=== PATIENT | female | born 1960 | race Hispanic/Latino ===

== ENCOUNTER 2020-03-09 12:04 | Emergency (ER) | payer OTHER ==
[~2020-03-09] VITALS: Ht 152.4 cm; Wt 64.0 kg
--- OUTSIDE RECORDS SUMMARY | 2020-03-09 12:07 | XMS REPORT | Continuity of Care Document ---
Author Author Cristobal Clemson [employer] Elidia, KENNETH HIPOLITO Organization [facility] [facility] Address Unknown Phone Unavailable Care Team Providers Care [place] Name Role Phone [facility] Unavailable Un available Problems No Data Provided for This Section Medications No Data Provided for This Section Allergies, Adverse Reactions, Alerts No Known Medication Allergies Immunizations No Data Provided for This Section Results No Data Provided for This Section Pathology Reports No Data Provided for This Section Diagnostic Reports No Data Provided for This Section Consultation Notes No Data Provided for This Section Discharge Summaries No Data Provided for This Section History and Physicals No Data Provided for This Section Vital Signs No Data Provided for This Section Encounters Location Location Details Encounter Type Encounter Number Reason For Visit Attending Provider ADM Date DC Date Status Source Outpatient [id number] Keara Gamino 05/08/2019 Active [facility] [id number] [facility] 05/26/2019 Active [facility] Outpatient [id number] [facility] 05/26/2019 Active [facility] Procedures No Data Provided for This Section Assessment and Plan No Data Provided for This Section Plan of Care No Data Provided for This Section Social History No Data Provided for This Section Family History No Data Provided for This Section Advance Directives No Data Provided for This Section Functional Status No Data Provided for This Section
--- OUTSIDE RECORDS SUMMARY | 2020-03-09 12:08 | XMS REPORT ---
Author Author [facility] t Organization [facility] Address [address] [place] [address] Phone Unavailable Care Team Providers Care Rn Wound Care Name Role Phone ROSY PRICE M.D. 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 Social History Smoking Status Start Date Stop Date Source Never smoker [facility] Medications Ordered Medication Name Filled Medication Name Start Date Stop Da te Current Medication? Ordering Clinician Indication Dosage Frequency Signature (SIG) Comments Components Source metFORMIN HCl TABS metFORMIN HCl TABS Yes [facility] Jardiance TABS Jardiance TABS Yes [facility] glipiZIDE TABS glipiZIDE TABS Yes [facility] Losartan Potassium TABS Losartan Potassium TABS Yes [facility] Raloxifene HCl TABS Raloxifene HCl TABS Yes [facility] Pantoprazole Sodium TBEC Pantoprazole Sodium TBEC Yes [facility] Pravastatin Sodium TABS Pravastatin Sodium TABS Yes [facility] Trulicity SOPN Trulicity SOPN Yes [facility] Folic Acid CAPS Folic Acid CAPS Yes [facility] Magic Mouthwash Magic Mouthwash Yes [facility] Vital Signs Vital Name Observation Time Observation Value Comments Source BP Systolic 2018-12-29 14:37:00 162 mm[Hg] [facility] BP Diastolic 2018-12-29 14:37:00 82 mm[Hg] [facility] Height 2018-12-29 14:37:00 62 [in_us] [facility] Weight 2018-12-29 14:37:00 147.5 [lb_av] [facility] Body Mass Index Calculated 2018-12-29 14:37:00 26.98 kg/m2 [facility] Heart Rate 2018-12-29 14:37:00 80 /min [facility] Procedures Procedure Date / Time Performed Performing Clinician Kermit e History of Hysterectomy [facility] Encounters Start Date/Time End Date/Time Encounter Type Admission Type Attendi [facility] Facility Care Department Encounter ID Source 2019-05-14 15:52:47 Outpatient [id number] [facility] 2019-07-23 09:37:00 2019-07-23 09:37:00 Outpatient [id number] [facility] 2019-07-09 13:51:00 2019-07-09 13:51:00 Outpatient [id number] [facility] 2019-06-07 10:50:00 2019-06-07 10:50:00 Outpatient [id number] [facility] 2019-05-26 14:45:00 2019-05-26 14:45:00 Outpatient [facility] LT [facility] [id number] [facility] 2019-05-26 14:45:00 2019-05-26 14:45:00 Outpatient [facility] LT [facility] [id number] [facility] 2019-05-08 11:40:00 2019-05-08 11:40:00 Outpatient [facility] LT [facility] [id number] [facility] 2019-04-22 14:48:00 2019-04-22 14:48:00 Outpatient [facility] [id number] [facility] [place] 2018-12-29 14:00:00 2018-12-29 14:00:00 Appointment; ROSY PRICE M.D. ROSY PRICE M.D. [facility] Otorhinolaryngology [facility] [id number] [facility] Results Test Description Test Time Test Comments Results Result Comments Source SCR MAMM BILATERAL TARIQ CAD DIGITAL 2019-12-14 09:24:36 - SCR MAMM BILATERAL TARIQ CAD DIGITALBILATERAL DIGITAL SCREENING MAMMOGRAM 3D/2D WITH CAD: 12/11/2019CLINICAL: Asymptomatic. Digital breast tomosynthesis was performed in addition to routine CC and MLO views. Current mammographic images were evaluated by either a VuSlidely M-Vu or a Hologic ImageChecker CAD (computer aided detection system). Comparison is made to exams dated 05/29/2018 mammogram, 05/24 mammogram, and 05/04/2016 mammogram - [facility]. The tissue of both breasts is heterogeneously dense. This may lower the sensitivity of mammography. There are benign vascular calcifications in the left breast. No suspicious mass, architectural distortion, malignant type calcification, or lymph node abnormality detected. Breast architecture is stable compared to prior exams.IMPRESSION: BENIGNThere is no mammographic evidence of malignancy. Resume annual screening mammography in one year. Henrik Díaz M.D. ss/penrad:12/14/2019 09:24:36 Charger Tester: Eva PEACE, [facility]: BIRADS 1-2 Normal Mammogram BI-RADS: 2 Benign
--- OUTSIDE RECORDS SUMMARY | 2020-03-09 12:08 | XMS REPORT | Summary of Care ---
Author Author KENNETH Conway M.A. Organization Unknown Address Unknown Phone Unavailable Care Team Providers Care Residential Team Leader Name Role Phone ROSY PRICE M.D. Unavailable Unavailable SAMANTHA ROBB, ADALI Unavailable Unavailable Unavailable Unavailable Functional Status Name Dates Details Functional status health issues are not documented Status: Name Dates Details Cognitive status health issues are not d ocumented Status: Problems Name Dates Details Burning tongue syndrome (529.6, K14.6) Status: Active Medications Name Dates Details metFORMIN HCl TABS Active Jardiance TABS * Refills: 0 Active glipiZIDE TABS * Refills: 0 Active Losartan Potassium TABS * Refills: 0 Active Raloxifene HCl TABS * Refills: 0 Active Pantoprazole Sodium TBEC * Refills: 0 Active Pravastatin Sodium TABS * Refills: 0 Active Trulicity SOPN * Refills: 0 Active Folic Acid CAPS * Refills: 0 Active Magic Mouthwash * Refills: 0 Active Allergies and Adverse Reactions Name Dates Details No Known Drug Allergies (Allergy) Status : Active Past Medical History Name Dates Details History of Depressive disorder (311, F32 .9) Status: Resolved History of diabetes mellitus (V12.29, Z8 6.39) Status: Resolved History of gastritis (V12.79, Z87.19) Status: Resolved Procedures Procedure Dates Details History of Hysterectomy Completed Immunization Name Dates Details Immunizations not documented Family History Name Dates Details No significant family history (V49.89, Z 78.9) Comments: Family History Status: Active Social History Name Dates Details - Status: Name Dates Details Never smoker Vital Signs Date Test Result Details [id number] BP Systolic 162 mm[Hg] Status: BP Diastolic 82 mm[Hg] Status: Height 62 in Status: Weight 147.5 lb Status: Body Mass Index Calculated 26.98 kg/m2 Status: Body Surface Area Calculated 1.68 m2 Status: Heart Rate 80 /min Status: Results Date Description Value Details Results not documented Plan of Care Name Dates Details Planned Observations Planned Goals not documented Interventions Provided Plan* 1. Burning resolved. Can stop the mouth rinse. FU as needed. Instructions Name Dates Details Instructions not documented Encounters Appointment; ROSY PRICE M.D. Encounter Diagnosis: Problem not documented On: 29-Dec-2018 14:00
[2020-03-09] MEDS ORDERED: SODIUM CHLORIDE 0.9% 1000ML 1,000 ML IV STA ×3 (12:26→13:34)
[2020-03-09] MEDS ORDERED: ACETAMINOPHEN 325 MG TAB PO ONE (12:30)
[2020-03-09 12:57] LABS: BASOPHILS % 0.2 % (0.0-1.0); EOSINOPHILS % 0.2 % (0.0-6.0); HEMATOCRIT 45.6 % (34.2-44.1); LYMPHOCYTES # (AUTO) 2.5 (1.0-3.2); LYMPHOCYTES % 29.3 % (18.0-39.1); MEAN CORPUSCULAR HEMOGLOBIN 26.4 pg (28-32); MEAN CORPUSCULAR HGB CONC 32.9 g/dL (31-35); MEAN CORPUSCULAR VOLUME 80.1 fL (81-99); MONOCYTES # (AUTO) 0.4 (0.2-0.8); MONOCYTES % 4.9 % (4.4-11.3); NEUTROPHILS # (AUTO) 5.6 (2.1-6.9); NEUTROPHILS % 65.1 % (38.7-80.0); PLATELET COUNT 308 x10e3/uL (140-360); RED BLOOD COUNT 5.69 x10e6/uL (3.6-5.1); RED CELL DISTRIBUTION WIDTH 13.1 % (11.7-14.4)
[2020-03-09 13:07] LABS: CLARITY,URINE CLEAR (CLEAR); COLOR,URINE YELLOW (YELLOW)
[2020-03-09 13:08] LABS: BILIRUBIN,URINE NEGATIVE (NEGATIVE); KETONES,URINE 1+ (NEGATIVE); LEUKOCYTE ESTERASE ,URINE NEGATIVE (NEGATIVE); NITRITE,URINE NEGATIVE (NEGATIVE); PROTEIN,URINE DIPSTICK NEGATIVE (NEGATIVE); URINE UROBILINOGEN 0.2 mg/dL (0.2 - 1)
[2020-03-09 13:19] LABS: BACTERIA,URINE FEW /HPF; EPITHELIAL CELLS,URINE MANY /LPF; RBC,URINE 0-5 /HPF (0-5); WBC,URINE (MAN) 0-5 /HPF (0-5)
[2020-03-09 13:27] LABS: INR 0.85; PROTHROMBIN TIME 12.1 seconds (11.9-14.5)
[2020-03-09 13:28] LABS: PARTIAL THROMBOPLASTIN TIME 30.3 seconds (23.8-35.5)
[2020-03-09 13:36] LABS: ALANINE AMINOTRANSFERASE 25 IU/L (0-55); ALBUMIN 4.6 g/dL (3.5-5.0); ALBUMIN/GLOBULIN RATIO 1.2 (0.8-2.0); ALKALINE PHOSPHATASE 78 IU/L (40-150); ANION GAP 19.5 mmol/L (8-16); BLOOD UREA NITROGEN 14 mg/dL (7-26); BUN/CREATININE RATIO 17 (6-25); CALCIUM 10.2 mg/dL (8.4-10.2); CARBON DIOXIDE 21 mmol/L (22-29); CHLORIDE 102 mmol/L (98-107); CREATINE KINASE 46 IU/L (29-168); CREATININE, SERUM 0.82 mg/dL (0.57-1.11); EST GLOMERULAR FILTRATION RATE > 60 ML/MIN (60-); GLUCOSE 101 mg/dL (74-118); POTASSIUM 3.5 mmol/L (3.5-5.1); SODIUM 139 mmol/L (136-145)
[2020-03-09] MEDS ORDERED: IOPAMIDOL 370 MG/ML 200 ML INFUS..BTL INJ ONE (13:52)
[2020-03-09] MEDS ORDERED: SODIUM CHLORIDE 0.9% 50ML 50 ML ONE (13:52)
--- NOTE | 2020-03-09 14:12 | Emergency Department Note ---
History of Present Illnes History of Present Illness Chief Complaint: sent by pcp to r/o pancreatitis History of Present Illness This is a 59 year old female. was doing well until 18 days ago then multiple episodes n/v. no pain nor other symptoms. Historian: Patient Arrival Mode: Car History limited by: condition of the patient (normal) Onset (how long ago): day(s) (18) Location: n/a Quality: n/a Severity: moderate Onset quality: gradual Duration (how long): day(s) Timing of current episode: constant Progression: worsening Chronicity: new Relieving factors: none Exacerbating factors: none Associated symptoms: nausea/vomiting Treatments prior to arrival: none Past Medical/Family History Physician Review I have reviewed the patient's past medical and family history. Any updates have been documented here. Past Medical History Recent Fever: Yes Clinical Suspicion of Infectio: No New/Unexplained Change in Ment: No Past Medical History: Hypertension, Diabetes Other Medical History: FATTY LIVER Past Surgical History: Hysterectomy Social History Smoking Cessation: Never Smoker Counseling Performed: No Any Illegal Drug Use: No TB Exposure/Symptoms: No Physically hurt or threatened: No Family History Family history of heart diseas: No Other Last Tetanus: OOD Any Pre-Existing Lines (PICC,: No Is patient up to date on immun: No Review of Systems Review of Systems Constitutional: no symptoms EENTM: no symptoms Cardiovascular: no symptoms Respiratory: no symptoms Gastrointestinal: as per HPI, nausea, vomiting; abdominal pain, constipation, diarrhea Genitourinary: no symptoms Musculoskeletal: no symptoms Neurological: no symptoms Psychological: no symptoms Endocrine: no symptoms Hematological/Lymphatic: no symptoms Review of other systems All other systems reviewed and negative. Physical Exam Related Data Allergies: Coded Allergies: No Known Allergies (Unverified , 03/09/20) Triage Vital Signs Vital Signs Date Time Temp Pulse Resp B/P (MAP) Pulse Ox O2 Delivery O2 Flow Rate FiO2 03/09/20 12:15 100.0 102 18 188/98 98 Vital signs reviewed: Yes Physical Exam CONSTITUTIONAL Constitutional: well-developed, well-nourished HENT HENT: normocephalic, atraumatic, oropharynx clear/moist, nose normal HENT L/R: left ext ear normal, right ext ear normal EYES Eyes: PERRL, conjunctivae normal NECK Neck: ROM normal PULMONARY Pulmonary: effort normal, breath sounds normal CARDIOVASCULAR Cardiovascular: regular rhythm, heart sounds normal, capillary refill normal, normal rate GASTROINTESTINAL Abdominal: soft, nontender, bowel sounds normal GENITOURINARY Genitourinary: exam deferred SKIN Skin: warm, dry MUSCULOSKELETAL Musculoskeletal: ROM normal NEUROLOGICAL Neurological: alert, oriented x 3, no gross motor or sensory deficits PSYCHOLOGICAL Psychological: mood/affect normal, judgement normal Results Laboratory Result Diagram: 03/09/20 1210 03/09/20 1221 Laboratory Laboratory Tests Test 03/09/20 12:21 03/09/20 12:10 Sodium Level 139 mmol/L (136-145) Potassium Level 3.5 mmol/L (3.5-5.1) Chloride Level 102 mmol/L (98-107) Carbon Dioxide Level 21 mmol/L (22-29) Anion Gap 19.5 mmol/L (8-16) Blood Urea Nitrogen 14 mg/dL (7-26) Creatinine 0.82 mg/dL (0.57-1.11) Estimat Glomerular Filtration Rate > 60 ML/MIN (60-) BUN/Creatinine Ratio 17 (6-25) Glucose Level 101 mg/dL (74-118) Calcium Level 10.2 mg/dL (8.4-10.2) Total Bilirubin 0.5 mg/dL (0.2-1.2) Aspartate Amino Transf (AST/SGOT) 22 IU/L (5-34) Alanine Aminotransferase (ALT/SGPT) 25 IU/L (0-55) Alkaline Phosphatase 78 IU/L (40-150) Creatine Kinase 46 IU/L (29-168) Creatine Kinase MB 0.60 ng/mL (0-5.0) Troponin I < 0.001 ng/mL (0-0.300) Total Protein 8.3 g/dL (6.5-8.1) Albumin 4.6 g/dL (3.5-5.0) Globulin 3.7 g/dL (2.3-3.5) Albumin/Globulin Ratio 1.2 (0.8-2.0) White Blood Count 8.60 x10e3/uL (4.8-10.8) Red Blood Count 5.69 x10e6/uL (3.6-5.1) Hemoglobin 15.0 g/dL (12.0-16.0) Hematocrit 45.6 % (34.2-44.1) Mean Corpuscular Volume 80.1 fL (81-99) Mean Corpuscular Hemoglobin 26.4 pg (28-32) Mean Corpuscular Hemoglobin Concent 32.9 g/dL (31-35) Red Cell Distribution Width 13.1 % (11.7-14.4) Platelet Count 308 x10e3/uL (140-360) Neutrophils (%) (Auto) 65.1 % (38.7-80.0) Lymphocytes (%) (Auto) 29.3 % (18.0-39.1) Monocytes (%) (Auto) 4.9 % (4.4-11.3) Eosinophils (%) (Auto) 0.2 % (0.0-6.0) Basophils (%) (Auto) 0.2 % (0.0-1.0) Neutrophils # (Auto) 5.6 (2.1-6.9) Lymphocytes # (Auto) 2.5 (1.0-3.2) Monocytes # (Auto) 0.4 (0.2-0.8) Eosinophils # (Auto) 0.0 (0.0-0.4) Basophils # (Auto) 0.0 (0.0-0.1) Absolute Immature Granulocyte (auto 0.03 x10e3/uL (0-0.1) Prothrombin Time 12.1 seconds (11.9-14.5) Prothromb Time International Ratio 0.85 Activated Partial Thromboplast Time 30.3 seconds (23.8-35.5) Urine Color Yellow (YELLOW) Urine Clarity Clear (CLEAR) Urine pH 5.5 (5 - 7) Urine Specific Clyde 1.020 (1.010-1.025) Urine Protein Negative (NEGATIVE) Urine Glucose (UA) 2+ (NEGATIVE) Urine Ketones 1+ (NEGATIVE) Urine Blood Negative (NEGATIVE) Urine Nitrite Negative (NEGATIVE) Urine Bilirubin Negative (NEGATIVE) Urine Urobilinogen 0.2 mg/dL (0.2 - 1) Urine Leukocyte Esterase Negative (NEGATIVE) Urine RBC 0-5 /HPF (0-5) Urine WBC 0-5 /HPF (0-5) Urine Epithelial Cells Many /LPF (NONE) Urine Bacteria Few /HPF (NONE) Lactic Acid Level 2.6 mmol/L (0.5-2.0) Lipase 20 U/L (8-78) Lab results reviewed: Yes Laboratory comments repeat lactic acid =1.5 s/p 3 liters ns Imaging Imaging results reviewed: Yes (cxr/ct abd/pelvis= neg) Diagnostics Tests Diagnostic test(s) reviewed: Yes (ekg= nsr /lad/hr =98, normal st segments and t waves) Critical Care Time Subsequent provider I assumed direction of critical care for this patient from another provider of my specialty. Assessment & Plan Reassessment Reassessment time: 15:30 Reassessment symptoms resolved and pt notified of results. pt is ready to go home Assessment & Plan Final Impression: (1) Vomiting (2) Dehydration Assessment & Plan take rxed meds zofran, cipro and flagyl. follow up with gi and pcp Depart Disposition: HOME, SELF-CARE Last Vital Signs Date Time Temp Pulse Resp B/P (MAP) Pulse Ox O2 Delivery O2 Flow Rate FiO2 03/09/20 12:15 100.0 102 18 188/98 98 Home Meds Active Scripts Metronidazole (METRONIDAZOLE) 500 Mg Tablet, 500 MG PO Q8H, #30 TAB take with juice and food Prov:LILIANE WOODRUFF 03/09/20 Ciprofloxacin Hcl (CIPRO) 500 Mg Tablet, 500 MG PO Q12H, #20 TAB Prov:LILIANE WOODRUFF 03/09/20 Ondansetron (ONDANSETRON ODT) 8 Mg Tab.rapdis, 8 MG PO Q6H PRN for NAUSEA AND VOMITING for 5 Days, #20 TAB 1 Refill Prov:LILIANE WOODRUFF 03/09/20 Medications in the ED Acetaminophen 975 mg ONCE ONCE PO Last administered on 03/09/20at 12:43; Admin Dose 975 MG; Start 03/09/20 at 12:30; Stop 03/09/20 at 12:31; Status DC Sodium Chloride 1,000 ml @ 999 mls/hr ONCE STAT IV Last administered on 03/09/20at 12:43; Admin Dose 999 MLS/HR; Start 03/09/20 at 12:26; Stop 03/09/20 at 13:26; Status DC Sodium Chloride 1,000 ml @ 1,000 mls/hr Q1H STAT IV Last administered on 03/09/20at 13:12; Admin Dose 1,000 MLS/HR; Start 03/09/20 at 13:05; Stop 03/09/20 at 14:04 Sodium Chloride 1,000 ml @ 100 mls/hr Q10H STAT IV Last administered on 03/09/20at 13:40; Admin Dose 100 MLS/HR; Start 03/09/20 at 13:34; Stop 03/09/20 at 23:33 Sodium Chloride 50 ml @ ud STK-MED ONCE .ROUTE ; Start 03/09/20 at 13:52; Stop 03/09/20 at 13:47; Status DC Iopamidol 74,000 mg STK-MED ONCE INJ ; Start 03/09/20 at 13:52; Stop 03/09/20 at 13:47; Status DC LILIANE WOODRUFF March 09, 2020 14:12
--- NOTE | 2020-03-09 14:29 | Diagnostic Imaging Report ---
EXAM: CT Abdomen and Pelvis WITH intravenous contrast INDICATION: Abdominal pain COMPARISON: None. TECHNIQUE: Abdomen and pelvis were scanned utilizing a multidetector helical scanner from the lung base to the pubic symphysis after administration of IV contrast. Coronal and sagittal reformations were obtained. Routine protocol was performed. Scan was performed during portal venous phase. IV CONTRAST: 100mL of Isovue 370 ORAL CONTRAST: Water RADIATION DOSE: Total DLP: 389 mGy*cm Dose modulation, iterative reconstruction, and/or weight based adjustment of the mA/kV was utilized to reduce the radiation dose to as low as reasonably achievable. FINDINGS: LOWER THORAX: Normal. HEPATOBILIARY: Diffuse hepatic steatosis. No focal liver lesion. Unremarkable gallbladder. SPLEEN: No splenomegaly. PANCREAS: No focal masses or ductal dilatation. ADRENALS: No adrenal nodules. KIDNEYS/URETERS: No hydronephrosis, stones, or solid mass lesions. PELVIC ORGANS/BLADDER: Distended bladder. PERITONEUM / RETROPERITONEUM: No free air or fluid. LYMPH NODES: No lymphadenopathy. VESSELS: Mild scattered atherosclerotic arterial calcifications. GI TRACT: No abnormal bowel thickening. No bowel obstruction. Normal appendix. BONES AND SOFT TISSUES: No acute osseous injury. No suspicious lytic or blastic lesions. Grade 1 anterolisthesis at L5-S1 with associated with bilateral pars interarticularis defects. IMPRESSION: No acute findings in the abdomen or pelvis. Specifically, no CT findings of pancreatitis. Diffuse hepatic steatosis. Signed by: Alejandra Harmon MD on 03/09/2020 2:26 PM
--- NOTE | 2020-03-09 14:30 | Diagnostic Imaging Report ---
EXAMINATION: CHEST 2 VIEWS INDICATION: Fever COMPARISON: None FINDINGS: LINES/TUBES:None LUNGS:The lungs are well-inflated. No focal consolidation or pulmonary edema. PLEURA:No pleural effusion or pneumothorax. MEDIASTINUM:The cardiomediastinal silhouette appears normal in size and shape. BONES/SOFT TISSUES:No acute osseous injury. ABDOMEN:No free air under the diaphragm. IMPRESSION: No focal pneumonia or pulmonary edema. Signed by: Alejandra Harmon MD on 03/09/2020 2:27 PM
[2020-03-09] MEDS ORDERED: PIPER-TAZ 3.375 GM 50 ML IV STA (15:24)
[2020-03-09] MEDS ORDERED: CIPRO500 MG PO (15:42)
[2020-03-09] MEDS ORDERED: ONDANSETRON ODT8 MG PO (15:42)
[2020-03-09] MEDS ORDERED: METRONIDAZOLE500 MG PO (15:42)
[2020-03-09 16:25] VITALS: BP 118/88
== END 2020-03-09 16:43 | disposition home or self-care (01) ==
LOC: ER 12:04
DX: R11.2 Nausea with vomiting, unspecified (principal); E86.0 Dehydration; I10 Essential (primary) hypertension; E11.9 Type 2 diabetes mellitus without complications
CPT/HCPCS: 36415; 71046; 74177; 80053; 81001; 82550; 82553; 83605; 83690; 84484; 85025; 85610; 85730; 87040; 87086; 93005; 99284; J2543; J7030; Q9967